=== PATIENT | male | born 1995 | race Caucasian/White ===

== ENCOUNTER 2018-06-20 17:51 | Emergency (ER) | payer OTHER ==
[~2018-06-20] VITALS: Ht 188 cm; Wt 111.1 kg
[~2018-06-20 17:51] MED LIST: ERYT1OIN RIGHTEYE; METPRE4DP PO; Sudogest30 MG PO; Zithromax250 MG PO
[2018-06-20] MEDS ORDERED: Bactrim Ds Tab1 EACH PO (18:33)
[2018-06-20] MEDS ORDERED: Cephalexin500 M1 PO (18:33)
== END 2018-06-20 18:56 | disposition home or self-care (01) ==
LOC: ER 17:51
DX: L02.511 Cutaneous abscess of right hand (principal); L03.011 Cellulitis of right finger; F17.210 Nicotine dependence, cigarettes, uncomplicated
CPT/HCPCS: 10060; 99283-25

== ENCOUNTER 2020-08-24 23:19 | Emergency (ER) | payer OTHER ==
[~2020-08-24] VITALS: Ht 188 cm; Wt 108.9 kg
[~2020-08-24 23:19] MED LIST changes: +Bactrim Ds Tab1 EACH PO; +Cephalexin500 M1 PO
[2020-08-25] MEDS ORDERED: IBUP600 PO (03:36)
[2020-08-25] MEDS ORDERED: ACETAMINOPHEN500 MG PO (03:36)
[2020-08-25] MEDS ORDERED: Valium5 MG PO (03:36)
== END 2020-08-25 03:55 | disposition home or self-care (01) ==
LOC: ER 23:19
DX: S03.41XA Sprain of jaw, right side, initial encounter (principal); I10 Essential (primary) hypertension; F17.210 Nicotine dependence, cigarettes, uncomplicated; X58.XXXA Exposure to other specified factors, initial encounter
CPT/HCPCS: 99282; A9270

== ENCOUNTER → 2025-02-18 | Outpatient (CLI) | payer OTHER ==
[~2025-02-18] MED LIST changes: +ACETAMINOPHEN500 MG PO; +IBUP600 PO; +Valium5 MG PO
[2025-02-18 19:26] LABS: Chlamydia Trachomatis Urine NOT DETECTED (NOT DETECT); Neisseria Gonorrhoea Urine NOT DETECTED (NOT DETECT)
[2025-02-20 09:31] LABS: HIV 1,2 COMBO ANTIGEN/ANTIBODY Negative (Negative)
[2025-02-20 14:42] LABS: APTIMA MEDIA TYPE Urine; C. TRACHOMATIS BY TMA Negative (Negative); N. GONORRHOEAE BY TMA Negative (Negative); T. VAGINALIS BY TMA Negative (Negative)
== END ==
LOC: LAB SHORT 15:59 → LAB 15:59
PROVIDERS: Nurse Practitioner Family
DX: Z11.3 Encounter for screening for infections with a predominantly sexual mode of transmission (principal)
CPT/HCPCS: 86592; 87491; 87591